=== PATIENT | male | born 1945 | race Caucasian/White ===

== ENCOUNTER 2019-02-24 03:09 | Outpatient (CLI) | payer MEDICARE, OTHER | END 2019-02-24 03:10 | disposition short-term general hospital (02) | LOC: EMS 03:09 | PROVIDERS: ATTEND Surgery | DX: R41.0 Disorientation, unspecified (principal); R47.81 Slurred speech; R73.09 Other abnormal glucose; W19.XXXA Unspecified fall, initial encounter; Y92.002 Bathroom of unspecified non-institutional (private) residence as the place of occurrence of the external cause | CPT/HCPCS: A0425; A0427 ==